=== PATIENT | female | born 1980 | race Caucasian/White ===

== ENCOUNTER 2022-12-07 13:40 | Outpatient (CLI) | payer OTHER, SELFPAY ==
[2022-12-07 20:36] LABS: Chlamydia DNA Amplified* NOT DETECTED (No Detected); GC DNA Amplified* NOT DETECTED (No Detected)
== END 2022-12-07 13:41 | disposition home or self-care (01) ==
PROVIDERS: Visit Provider Registered Nurse
DX: Z01.419 Encounter for gynecological examination (general) (routine) without abnormal findings (principal); Z13.6 Encounter for screening for cardiovascular disorders; Z13.1 Encounter for screening for diabetes mellitus; Z11.3 Encounter for screening for infections with a predominantly sexual mode of transmission
CPT/HCPCS: 80061; 82947; 86706; 87340; 87491; 87591

== ENCOUNTER 2023-01-30 14:10 | Outpatient (CLI) | payer OTHER, SELFPAY ==
--- NOTE | 2023-01-30 14:30 | CRLHL7_ITS ---
For Patients: As a result of the Century Cures Act, medical imaging exams and procedure reports are released immediately into your electronic medical record. You may view this report before your referring provider. If you have questions, please contact your health care provider. Indication: Family history of ischemic heart disease Technique: 3D [id number] MR angiogram of the [id number] with 3-dimensional MIP projections were submitted. Axial diffusion weighted imaging was obtained through the brain. Comparison: No prior studies available for comparison at this institution. Findings: The visualized first and second order intracranial vessels are unremarkable. No occlusion/filling defect or acquired arterial stenosis identified. No aneurysm or vascular malformation seen. No abnormal restricted diffusion. Impression: 1. Unremarkable MRA of the head as far as visualized. 2. No evidence of acute/subacute ischemia. Dictated by Hannah Guo MD @ 01/30/2023 4:31:10 PM (Electronically Signed)
--- NOTE | 2023-01-30 15:30 | CRLHL7_ITS ---
For Patients: As a result of the Century Cures Act, medical imaging exams and procedure reports are released immediately into your electronic medical record. You may view this report before your referring provider. If you have questions, please contact your health care provider. Indication: Family history of ischemic heart disease Technique: [id number] and MR angiogram of the neck with 3D MIP reconstructions provided. All measurements are based on NASCET criteria. Comparison: Seen on the MRA head Findings: Both carotid systems are unremarkable in the neck. No evidence for hemodynamically significant internal carotid artery stenosis by NASCET criteria. The cervical segments of both vertebral arteries are patent. The left vertebral artery is mildly dominant. The visualized portions of the aortic arch, great vessel origins and proximal subclavian arteries are unremarkable. Impression: Unremarkable MRA of the neck as far as visualized. Dictated by Hannah Guo MD @ 01/30/2023 4:34:16 PM (Electronically Signed)
--- NOTE | 2023-01-30 16:00 | CRLHL7_ITS ---
For Patients: As a result of the Century Cures Act, medical imaging exams and procedure reports are released immediately into your electronic medical record. You may view this report before your referring provider. If you have questions, please contact your health care provider. INDICATION: Nicotine dependence TECHNIQUE: Ultrasound abdominal aorta COMPARISON: None FINDINGS: The proximal abdominal aorta measures 2.5 centimeter x 2.4 centimeter, mid aorta measures 1.7 centimeter x 0.8, distal aorta measures 1.8 centimeter x 1.8 centimeter, right common iliac artery measures 1.0 centimeter x 1.2 centimeter, and the left common iliac artery measures 1.0 centimeter x 1.0 centimeter. There are no periaortic abnormalities evident. IMPRESSION: Normal ultrasound of the abdominal aorta. No sign of aneurysm. Dictated by Rivera Maxwell MD @ 01/30/2023 4:23:20 PM (Electronically Signed)
== END 2023-01-30 14:11 | disposition home or self-care (01) ==
PROVIDERS: Visit Provider Registered Nurse
DX: F17.200 Nicotine dependence, unspecified, uncomplicated (principal); Z82.49 Family history of ischemic heart disease and other diseases of the circulatory system
CPT/HCPCS: 70544; 70547; 76706

== ENCOUNTER 2024-09-16 09:50 | Outpatient (CLI) | payer MEDICAID, SELFPAY | END 2024-09-16 09:51 | disposition home or self-care (01) | PROVIDERS: PCP Family Medicine; Visit Provider Family Medicine | DX: R53.83 Other fatigue (principal); R63.5 Abnormal weight gain; R63.1 Polydipsia; Z13.6 Encounter for screening for cardiovascular disorders; Z11.59 Encounter for screening for other viral diseases; Z13.1 Encounter for screening for diabetes mellitus | CPT/HCPCS: 80053; 80061; 82306; 84443; 86803 ==

== ENCOUNTER 2024-12-01 13:48 | Outpatient (CLI) | payer MEDICAID, SELFPAY ==
--- NOTE | 2024-12-01 14:00 | CRLHL7_ITS ---
For Patients: As a result of the Century Cures Act, medical imaging exams and procedure reports are released immediately into your electronic medical record. You may view this report before your referring provider. If you have questions, please contact your health care provider. INDICATION: BILATERAL SCREENING MAMMOGRAM, ASYMPTOMATIC 43 Y/O FEMALE COMPARISON: 12/19/22 TECHNIQUE: CC and MLO views were obtained. These mammographic images have been obtained using full-field digital technique. These mammographic images were interpreted with the benefit of computer aided detection and tomosynthesis. BREAST COMPOSITION: There are scattered areas of fibroglandular density. FINDINGS: No suspicious findings. ASSESSMENT: BI-RADS 1 Negative RECOMMENDATION: Annual screening mammogram. A lay language report of this examination will be provided to the patient. Dictated by: Rivera Mcfarland MD @ 12/08/2024 09:43:57 (Electronically Signed)
== END 2024-12-01 13:49 | disposition home or self-care (01) ==
LOC: MAMMO 13:48
PROVIDERS: PCP Family Medicine; Visit Provider Family Medicine
DX: Z12.31 Encounter for screening mammogram for malignant neoplasm of breast (principal)
CPT/HCPCS: 77063; 77067

== ENCOUNTER 2025-03-02 09:14 | Outpatient (CLI) | payer MEDICAID, SELFPAY ==
--- NOTE | 2025-03-02 10:33 | P.ANES_ITS ---
Anesthesia Charges Start Date/Time Anesthesia Start Date: 03/02/25 Anesthesia Start Time: 09:43 Stop Date/Time Anesthesia Stop Date: 03/02/25 Anesthesia Stop Time: 10:22 Coding CPT Codes CPT Codes: MARIA FERNANDAS LWR INTST NDSC NOS - [id number] ([id number]) P2 - PATIENT W/MILD SYST DISEASE, QZ - GLASS TECHNICIAN/INSTALLER SVC W/O NEEDLE PROCESS FELT GOODS SUPERVISOR BY
--- NOTE | 2025-03-02 10:33 | W.ANESCHARGE ---
Anesthesia Charges Start Date/Time Anesthesia Start Date: 03/02/25 Anesthesia Start Time: 09:43 Stop Date/Time Anesthesia Stop Date: 03/02/25 Anesthesia Stop Time: 10:22 Coding CPT Codes CPT Codes: MARIA FERNANDAS LWR INTST NDSC NOS - [id number] ([id number]) P2 - PATIENT W/MILD SYST DISEASE, QZ - SUPERINTENDENT MEASUREMENT SVC W/O EPIC RADIANT ANALYST BY
== END 2025-03-02 09:15 | disposition home or self-care (01) ==
LOC: OP CLINIC 09:15
PROVIDERS: PCP Family Medicine; Visit Provider Surgery
DX: Z12.11 Encounter for screening for malignant neoplasm of colon (principal); K64.2 Third degree hemorrhoids
CPT/HCPCS: 00811; 00812; 45380; 88305; J2405; J2704